=== PATIENT | female | born 1985 | race Caucasian/White ===

== ENCOUNTER 2016-06-05 21:21 | Emergency (ER) ==
--- NOTE | 2016-06-05 21:51 | PROVIDER DOCUMENTATION ---
HPI-Musculoskeletal Pain/Inj - GENERAL Chief Complaint: Extremity Injury Stated Complaint: LT ARM INJ, SKATING ACCIDENT Time Seen by Provider: 06/05/16 21:45 - HX OF PRESENT ILLNESS-MUSKULOSKELTAL Nature of Presenting Problem: [place] and [place] backward and caught herself with her left hand and is having left wrist pain. Review of Systems - Adult - REVIEW OF SYSTEMS - ADULT Constitutional: reports: no symptoms reported. denies: chills, fever, fatique, night sweats, weight gain, other Eyes: reports: no symptoms reported. denies: discharge, blurred vision, eye pain Ears, Nose, Mouth & Throat: reports: no symptoms reported. denies: ear discharge, ear pain, hearing loss, nose pain, mouth/dental pain, mouth swelling , hoarseness, throat swelling Cardiovascular: reports: no symptoms reported. denies: chest pain, edema, heart murmur, orthopnea, palpitations, poor circulation, syncope Respiratory: reports: no symptoms reported. denies: chronic cough, cough, dyspnea on exertion, excessive sputum production, hemoptysis, pleurisy, wheezing Gastrointestinal: reports: no symptoms reported. denies: abdominal pain, hematemesis, constipation, difficulty swallowing, frequent heartburn, poor appetite, rectal bleeding, vomiting Genitourinary: reports: no symptoms reported. denies: dysuria, discharge, frequency, hematuria, hesitency, urinary retention, urgency Musculoskeletal: reports: see HPI, bone pain, joint pain. denies: frequent leg cramps, joint swelling, muscle aches, muscle weakness, neck pain Integumentary: reports: no symptoms reported. denies: hives, hair loss, itching , mole changes, rash, skin sores/ulcer, skin thickening Neurological: reports: no symptoms reported. denies: dizziness/vertigo, headache/migraines, numbness, paresthesia, seizure, slurred speech, syncope, tremors Psychiatric: reports: no symptoms reported. denies: anxiety, anti-depressant use, alcohol/drug dependence, insomnia, panic attacks, suicidal thoughts Endocrine: reports: no symptoms reported. denies: change in skin pigment, excessive sweating, heat intolerance, increased thirst, polyuria Hematologic/Lymphatic: reports: no symptoms reported. denies: blood clots, easy bruising, low blood count, prolonged bleeding, swollen lymph nodes, transfusions Allergic/Immunologic: reports: no symptoms reported. denies: allergic reactions , allergic rhinitis, asthma, food allergy, hay fever, hives, positive PPD, urticaria All Other Systems: Reviewed and Negative Past History - Adult - PAST MEDICAL HISTORY-ADULT Review of Records: reports: Old Records Reviewed, Nursing Assessment Review, Medications Reviewed, Social history reviewed & non-contributory. Major Childhood Illnesses: reports: denies history Cardiovascular: reports: denies history Respiratory: reports: denies history Gastrointestinal: reports: colitis Obstetrical/Gynecological: reports: denies history Genitourinary: reports: denies history Musculoskeletal: reports: denies history Neurological: reports: denies history Endocrine/Immune: reports: denies history Other Conditions: reports: denies history - PRIOR SURGERIES/PROCEDURES Surgical/Procedure History: reports: other (bowel sx) - PRIOR HOSPITALIZATIONS Prior Hospitalizations: reports: none - IMMUNIZATION STATUS Childhood Immunizations: See Nurse Assessment Flu Vaccine: See Nurse Assessment - FAMILY HISTORY Family History: reviewed, not pertinent - SOCIAL HISTORY Smoking: denies Substance Use: none/never Alcohol Use Frequency: never Living Situation: family Physical Exam-Injury Related - Physical Exam-Injury Related Initial Vital Signs Reviewed: Yes General Appearance: appears well, alert, no apparent distress, thin Eyes: PERRL/EOMI, pink conjunctivae Head, Ears, Nose, Mouth & Throat: normocephalic/atraumatic, moist mucous membranes, normal ENT inspection Neck: non-tender, full range of motion, supple Respiratory: chest non-tender, lungs clear, normal breath sounds, no pleuratic chest pain, no respiratory distress, no accessory muscle use Cardiovascular: normal peripheral pulses, regular rate, rhythm Abdominal Exam: normal bowel sounds, non tender, soft, no organomegaly Male Genitalia: deferred Back Exam: normal inspection, no CVA tenderness, no vertebral tenderness Extremity: normal range of motion, normal gait, normal inspection, no pedal edema, no calf tenderness, normal capillary refill, tenderness Integumentary: normal color, warm/dry Neurologic: director of community center II-XII nml as tested, grossly normal Psych/Mental Status: normal mood/affect, normal thought content, normal thought process, oriented x 3 - [place] Coma Score Best Eye Response ([place]): (4) open spontaneously Best Verbal Response ([place]): (5) oriented Best Motor Response ([place]): (6) obeys commands Progress - PLAN OF CARE/RESULTS Progress/Plan/Lab Results: Orders Category Date Time Status ED: Urine Bedside ORDERED Care 06/05/16 21:38 Active WRIST COMPLETE LEFT [RAD] Stat Exams 06/05/16 21:39 Ordered Vital Signs - 24 hr 06/05/16 21:34 Temperature 98 F Pulse Rate 76 Respiratory 18 Rate Blood Pressure 117/64 O2 Sat by Pulse 100 Oximetry Laboratory Tests 06/05/16 21:45 Urine Source CLEAN CATCH Urine Color YELLOW Urine Turbidity CLEAR Urine pH 5.5 Ur Specific [place] 1.035 Urine Protein 30 A Ur Glucose (Stick) NEGATIVE Ur Ketones (Stick) TRACE A Urine Blood NEGATIVE Urine Nitrite POSITIVE A Urine Bilirubin NEGATIVE Urobilinogen Dipstick NORMAL Urine Leukocytes NEGATIVE Urine WBC (Auto) <10 Urine RBC (Auto) <10 U Epithel Cells (Auto) >10 A Urine Bacteria (Auto) 4+ Laboratory Tests 06/05/16 21:45 Urine Source CLEAN CATCH Urine Color YELLOW Urine Turbidity CLEAR Urine pH 5.5 Ur Specific [place] 1.035 Urine Protein 30 A Ur Glucose (Stick) NEGATIVE Ur Ketones (Stick) TRACE A Urine Blood NEGATIVE Urine Nitrite POSITIVE A Urine Bilirubin NEGATIVE Urobilinogen Dipstick NORMAL Urine Leukocytes NEGATIVE Urine WBC (Auto) <10 Urine RBC (Auto) <10 U Epithel Cells (Auto) >10 A Urine Bacteria (Auto) 4+ - XRAY 1 XRAY: Left XRAY Study: Wrist Impression: Normal XRAY Interpretation: no fx or dislocation (hcb) Departure - Departure Time of Disposition Order: 23:36 DIAGNOSIS: Left wrist sprain Qualifiers: Encounter type: initial encounter Qualified Code(s): S63.502A - Unspecified sprain of left wrist, initial encounter UTI (urinary tract infection) Qualifiers: Urinary tract infection type: site unspecified Hematuria presence: without hematuria Qualified Code(s): N39.0 - Urinary tract infection, site not specified Disposition: HOME 01 Certified Medical Emergency: Emergent Condition: Good Additional Instructions: follow up with ortho or PCP if wrist pain continues ED Follow Up Instructions: You have been treated by a care provider in the Emergency Department. These instructions are being provided to you so you can have an understanding of how to care for yourself upon discharge. Upon discharge from the Emergency Department, you are responsible for making arrangements for follow-up care by a physician of your choice. Take all prescribed medications as directed. Return to the Emergency Department immediately for any new or worsening symptoms. You may call the Physician Referral phone number at [phone] to obtain a list of Physicians who are taking new patients. Prescriptions: Ibuprofen [Motrin] 800 mg PO Q8H PRN PRN #20 tablet PRN Reason: Pain Ciprofloxacin [Cipro] 250 mg PO BID #10 tablet Omeprazole [Prilosec] 40 mg PO DAILY #20 capsule.dr Referrals: None,PCP [Primary Care Provider] - Attestation - Physician/ VASILIY Attestation Patient care was provided by Advanced Practice Provider:: Yes Advanced Practice Provider:: Odilon Dupont Advanced Practice Provider documentation review:: The Mid-level provider documentation, treatment plan and medical decision making was reviewed by the physician who agrees with all treatment and medical decision making by the MLP.
[2016-06-05 23:01] LABS: URINE MICRO REVIEW NEEDED? NO; URINE SOURCE CLEAN CATCH
[2016-06-05] MEDS ORDERED: NORCO-10 PO ONE (23:03)
[2016-06-05 23:05] LABS: BILIRUBIN URINE NEGATIVE (NEGATIVE); BLOOD URINE NEGATIVE (NEGATIVE); COLOR YELLOW; GLUCOSE URINE NEGATIVE (NEGATIVE); LEUKOCYTES URINE NEGATIVE (NEGATIVE); NITRITE URINE POSITIVE (NEGATIVE); PH URINE 5.5; PROTEIN URINE 30 mg/dL (NEGATIVE); SP GRAVITY URINE 1.035; TURBIDITY URINE CLEAR (CLEAR); UROBILINOGEN URINE NORMAL (NORMAL)
[2016-06-05 23:06] LABS: UR EPITHELIAL CELLS >10 /HPF (<10); URINE BACTERIA 4+ /HPF; URINE CULTURE NEEDED? YES; URINE RBC <10 /HPF (<10); URINE WBC <10 /HPF (<10)
[2016-06-05] MEDS ORDERED: CIPRO PO ONE (23:35)
[2016-06-06 00:30] VITALS: BP 116/66
--- NOTE | 2016-06-06 12:29 | Diag Imaging Result Document ---
PROCEDURE NAME: WRIST COMPLETE LEFT - 06/05/2016 LEFT WRIST, 3 VIEWS: FINDINGS: There is questionable nondisplaced fracture of the distal radial metaphysis. There is no other fracture identified. There is no dislocation seen. IMPRESSION: Questionable nondisplaced fracture of distal radial metaphysis.
== END 2016-06-06 00:29 | disposition home or self-care (01) ==
LOC: ED 21:21
DX: S63.502A Unspecified sprain of left wrist, initial encounter (principal); N39.0 Urinary tract infection, site not specified; M25.532 Pain in left wrist; V00.121A Fall from non-in-line roller-skates, initial encounter
CPT/HCPCS: 81001; 81025; 87077; 87088; 87186; 99284